=== PATIENT | female | born 1950 | race Caucasian/White ===

== ENCOUNTER 2016-12-23 14:17 | Observation (INO) | payer BC ==
[2016-12-23] MEDS ORDERED: ASPIRIN CHEWTAB 81 MG TABLET ONE (14:49)
[2016-12-23 14:56] LABS: ABSOLUTE NEUTROPHIL COUNT 3.5 K/mm3 (1.8-7.7); BASO # 0.1 K/mm3 (0.0-0.2); BASO % 0.9 % (0.2-1.0); EOS # 0.2 (0.0-0.5); EOS % 2.8 % (0.9-2.9); HEMATOCRIT 38.5 % (37.0-47.0); HEMOGLOBIN 11.7 gm/l (12.0-16.0); IMM NEUT% 0.2 % (0-1); LYMPH # 2.2 (1.0-4.8); LYMPH % 34.2 % (15-45); MEAN CELL VOLUME 83.5 fl (81.0-99.0); MEAN CORPUSCULAR HEMOGLOBIN 25.4 pg (27.0-31.0); MEAN CORPUSCULAR HGB CONC 30.4 g/dl (33.0-37.0); MEAN PLATELET VOLUME 10.9 fl (7.4-10.4); MONO # 0.5 (0.0-0.8); NEUT % 54.9 % (43-75); PLATELET COUNT 258 K/mm3 (130-400); RED CELL DISTRIBUTION WIDTH 15.2 % (11.5-14.5)
[2016-12-23 15:06] LABS: ALB/GLOB RATIO 1.3 (>1.0); CALCIUM 9.5 mg/dL (8.6-10.3)
[2016-12-23 15:11] LABS: TROPONIN I < 0.01 ng/ml (0.0-0.06)
[2016-12-23 15:15] LABS: CKMB ISOENZYME 1.5 ng/ml (0.6-6.3)
--- NOTE | 2016-12-23 15:34 | RAD ---
Name: BILLY GALINDO Exam: Two-view chest Comparison: None Clinical history: Chest pain Findings: 2 views of the chest are submitted. The heart mediastinum and hilar structures are within normal limits. There is no failure, infiltrate, pleural effusion or pneumothorax. There is mild reverse S-shaped scoliosis of the thoracic spine with mild multilevel degenerative disease. Impression: No acute cardiopulmonary process
[2016-12-23 17:15] VITALS: BMI 31.9
[2016-12-23] MEDS ORDERED: SODIUM CHLORIDE 0.9% 100 ML IV PRN (18:03)
[2016-12-23] MEDS ORDERED: BLISTEX LIPSTICK 1 EACH TP PRN (18:03)
[2016-12-23] MEDS ORDERED: ACETAMINOPHEN 325 MG TABLET PO PRN (18:03)
[2016-12-23] MEDS ORDERED: MENTHOL/CETYLPYRD 1 EACH LOZENGE PO PRN (18:03)
[2016-12-23] MEDS ORDERED: MAGNESIUM HYDROXIDE 30 ML UDCUP PO PRN (18:03)
[2016-12-23] MEDS ORDERED: NITROGLYCERIN 0.4 MG/TAB.SUBL BOT SL PRN (18:06)
[2016-12-23] MEDS ORDERED: SODIUM CHLORIDE 0.9% 1,000 ML IV SCH (18:30)
--- NOTE | 2016-12-23 19:45 | HP ---
BILLY GALINDO [id number] DATE OF : 1950 DATE OF ADMISSION: 12/23/2016 IDENTIFICATION: Ms. Galindo is a 66-year-old followed by Dr. Alanna Kruse. CHIEF COMPLAINT: Chest pain. HISTORY OF PRESENT ILLNESS: Ms. Galindo was playing cards this afternoon at 1300 hours when she had onset of sharp chest pains. The pains were on her left side with some radiation into her shoulder and neck. They were sharp. It lasted for a minute or so, and would go away, but then come back. There was associated nausea and some diaphoresis. She then had a persistent low grade discomfort in the left side of her neck and left shoulder that persisted even after the sharp chest pains had resolved. She was seen in the emergency department, treated with oral aspirin and sublingual nitroglycerin and the subsequent discomfort in the shoulder and neck have resolved as well. She denies any prior history of chest pain, but did have a stress test approximately 10 years ago done by Dr[address] Silva. She does walk a little bit for exercise, but not on any regular basis. REVIEW OF SYSTEMS: HEENT: Occasionally feels dizzy when she gets up from sitting, or supine position. No loss of consciousness. No headache. No problems with ear, nose or throat. Cardiac: No palpitations, otherwise as her per history of present illness. Respiratory: No cough, or dyspnea. Gastrointestinal: Some transient nausea with the chest pain. No vomiting, no reflux, no abdominal pain, diarrhea, constipation, hematochezia, or melena. Genitourinary: She has some mild dysuria, not as severe as when she has had bladder infections. Musculoskeletal: No complaints. Constitutional: No fever or chills. She thinks she may have gained 5 pounds over the course of the last year. PAST MEDICAL HISTORY: 1. Hypertension. 2. Dyslipidemia. 3. Depression with anxiety. 4. Obesity, body mass index 32 today. PAST SURGICAL HISTORY: 1. Gastric bypass surgery. 2. Right leg varicose vein stripping. 3. Cholecystectomy. ALLERGIES: REPORTED TO [facility] UNKNOWN REACTION. MEDICATIONS: 1. Sertraline 50 mg by mouth nightly. 2. Vitamin D 50,000 international units by mouth twice weekly. 3. Vitamin B12 injections 1000 mcg monthly. 4. Hydrochlorothiazide 25 mg by mouth each evening. 5. Potassium chloride 10 mEq by mouth each evening. 6. Calcium carbonate 500 mg by mouth each evening. HABITS: Rare alcohol use. No current, or past tobacco use. SOCIAL HISTORY: Lives with her in [place]. 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 FAMILY HISTORY: Her mother had atherosclerosis and of a stroke at age 69. Her mother also had diabetes mellitus type 2. PHYSICAL EXAMINATION: GENERAL: This is a pleasant obese 66-year-old in no acute distress. VITAL SIGNS: Temperature is 98 degrees Fahrenheit. Pulse is 57. Blood pressure is 133/66. Respiratory rate is 16. Oxygen saturation is 97% on room air. HEENT: Pupils equal, round, and reactive. Extraocular muscles are intact. Oropharynx is moist. NECK: No jugular venous distention, or bruits. CHEST: Clear to auscultation. HEART: Regular, normal S1 and S2, no murmurs. ABDOMEN: Obese, soft and nontender. Normal bowel tones. No organomegaly. EXTREMITIES: Good dorsalis pedis pulses. No clubbing, cyanosis or edema. NEUROLOGIC: Alert and oriented. No focal deficits. LABORATORY DATA: White blood cell count is 6.4, hemoglobin and hematocrit 11.7 and 38.5, and platelets 257. Sodium is 137, potassium 4.4, chloride 99, CO2 of 29, BUN 22, creatinine 1.2, and glucose 94. AST is 43. CK-MB is 1.5. Troponin I is less than 0.01. DIAGNOSTIC IMAGIN. Chest x-ray normal. 2. Electrocardiogram with normal sinus rhythm. ASSESSMENT: Ms. Galindo is a 66-year-old with episode of chest pain associated with persistent discomfort in the left shoulder and neck. She has cardiac risk factors of hypertension and dyslipidemia. She also has mildly decreased renal function possibly chronic kidney disease versus acute kidney injury. PLAN: 1. Refer to observation. 2. Repeat cardiac enzymes, and anticipate myocardial perfusion study in the morning. 3. Continue outpatient medications. 4. IV hydration, and repeat basic metabolic profile for renal function in the morning. 5. FULL CODE status. 6. Venous thromboembolism risk is low. She does not require prophylaxis. /jennifer
[2016-12-23] MEDS ORDERED: PUMP TUBING ONE (19:51)
[2016-12-23] MEDS: POTASSIUM CHLORIDE 10 MEQ TAB.SR PO SCH (19:58)
[2016-12-23] MEDS: HYDROCHLOROTHIAZIDE 25 MG TABLET PO SCH (19:58)
[2016-12-23] MEDS: DOCUSATE SODIUM 100 MG CAPSULE PO SCH (20:00)
[2016-12-23 21:00] LABS: URINE APPEARANCE HAZY; URINE BILIRUBIN NEGATIVE (NEGATIVE); URINE BLOOD NEGATIVE (NEGATIVE); URINE COLOR STRAW; URINE GLUCOSE (UA) NEGATIVE (NEGATIVE); URINE LEUKOCYTE ESTERASE NEGATIVE (NEGATIVE); URINE NITRITE POSITIVE (NEGATIVE); URINE PROTEIN NEGATIVE (NEGATIVE); URINE UROBILINOGEN NORMAL (0-1 mg/dl)
[2016-12-23] MEDS ORDERED: SERTRALINE HCL 50 MG TABLET PO SCH (21:00)
[2016-12-23 21:02] LABS: URINE BACTERIA 4+; URINE RBC 0-1 /hpf
[2016-12-23] MEDS ORDERED: CIPROFLOXACIN 500 MG TABLET PO SCH (22:15)
[2016-12-24 06:38] VITALS: BP 121/57
[2016-12-24 07:14] LABS: CALCIUM 9.1 mg/dL (8.6-10.3)
[2016-12-24] MEDS ORDERED: CIPROFLOXACIN 500 MG TABLET PO SCH (09:00)
[2016-12-24] MEDS: CALCIUM CARBONATE 600 MG/VITAMIN D3 400 UNIT/TABLET PO SCH ×2 (09:17→11:21)
[2016-12-24] MEDS: DOCUSATE SODIUM 100 MG CAPSULE PO SCH (09:18)
[2016-12-24] MEDS: HYDROCHLOROTHIAZIDE 25 MG TABLET PO SCH (09:18)
[2016-12-24] MEDS: ASPIRIN (ENTERIC COATED) 325 MG TABLET.EC PO SCH ×2 (09:18→11:22)
[2016-12-24] MEDS: POTASSIUM CHLORIDE 10 MEQ TAB.SR PO SCH ×2 (09:18→11:21)
[2016-12-24] MEDS ORDERED: CIPROFLOXACIN 250 MG TABLET PO SCH (09:25)
--- NOTE | 2016-12-24 10:51 | NUC MED ---
Exam: Nuclear medicine myocardial SPECT, ejection fraction and wall motion Comparison: None Indication: Chest pain. Technique: 11.3 mCi of technetium 99m sestamibi were administered for the rest portion of the exam and SPECT imaging was obtained per protocol. Stress was achieved Jonah protocol in which 92% of target heart rate was met. Please see separate EKG.. At maximum stress, 37.2 mCi of technetium 99m sestamibi were administered and SPECT imaging was obtained per protocol. Findings: Ejection fraction is calculated at 79%. There are no focal wall motion abnormalities. Myocardial perfusion is normal during stress. There are patchy areas of relative decreased perfusion at rest, most prominent within the anteroseptal wall. This region demonstrates increased perfusion at stress. Some gut uptake is noted at rest. IMPRESSION: 1. No evidence of stress-induced ischemia. 2. Ejection fraction 79%. 3. No focal wall motion abnormalities. Report called to Dr. Barrett 1041 hours 12/24/2016.
--- NOTE | 2016-12-24 11:30 | PDOC5 ---
ADMIT DATE: 12/23/16 DISCHARGE DATE: 12/24/16 ADMISSION DIAGNOSES: Chest pain History gastric bypass dyslipidemia Pyuria, suspected UTI Chronic kidney disease, suspect Stage III (eGFR=50) PROCEDURES PERFORMED THIS HOSPITALIZATION: Jonah Myoview, showing normal EKG results, good activity tolerance, and normal imaging. Urine culture, pending CONSULTATIONS: none HOSPITAL COURSE: This is a 66 year old female without significant cardiac risks who had some chest discomfort the day of admission. Referred to [facility], initial eval neg, with neg EKG, neg labs. Referred to Hospitalist service, observed overnight, with an unremarkable stay, no change in normal cardiac enzymes. Pt was started on Cipro for suspected UTI. Culture results are pending. Pt underwent Jonah Protocol stress myoview, with good activity tolerance, normal EKG and normal imaging results. Anticipate DC to home today. - Exam Vital Signs Temperature 97.5 F 12/24/16 06:37 Pulse Rate 62 12/24/16 06:37 Respiratory Rate 16 12/24/16 08:00 Blood Pressure 121/57 12/24/16 06:37 O2 Saturation by Pulse Oximetry 97 12/24/16 06:37 Oxygen Delivery Method Room Air Oxygen Flow Rate 0 General: Alert, Cooperative, No Acute Distress Lungs: Clear to Auscultation Bilaterally, Normal Air Movement Cardiovascular: Regular Rate and Rhythm Abdomen: Soft, Normal Bowel Sounds, Non-Distended Extremities: No Edema (no pitting edema) Skin: Normal Color Neurological: Normal Speech Psych/Mental Status: Normal Affect, Normal Mood - Results Laboratory 12/24/16 06:20 12/24/16 06:20 Estimated GFR 50 L Imaging Results: normal myoview, no perfusion defects, normal EF Chest Xray - no acute process, some scoliosis - Problems:Assessment/Plan (1) Chest pain Qualifiers: Chest pain type: other chest pain Qualifier Code: (R07.89) Other chest pain Status: AcuteAssessment/Plan: Symptoms mild, generally resolved on exertion. Troponins normal EKG and myoview normal. Anticipate DC to home. (2) Bacteriuria with pyuria Status: AcuteAssessment/Plan: Suspected UTI, cultures pending. Anticipate home with Cipro. - Disposition: Disposition: Anticipate DC to home today. - Discharge Plan Additional Instructions: Your main diagnosis is noncardiac chest pain You had a Jonah protocol myoview stress test that was normal Your troponin tests (blood test for heart attack) were all normal. These are great results! Your urine test suggested a possible bladder infection. The culture is not back yet, but we are giving you a prescription for ciprofloxacin (antibiotic) You could check with your doctor later this week about whether to continue or revise this medication. Prescriptions: Ciprofloxacin [CIPRO 250 MG TABLET (SHF)] 250 mg PO BID 5 Days Follow-Up: Alanna Kruse MD [Primary Care Provider] - Condition: Good Disposition: Home
== END 2016-12-24 12:00 | disposition home or self-care (01) ==
LOC: ED 14:17 → MS 16:04
PROVIDERS: ADMIT Family Medicine; ATTEND Family Medicine
DX: R07.89 Other chest pain (principal); I12.9 Hypertensive chronic kidney disease with stage 1 through stage 4 chronic kidney disease, or unspecified chronic kidney disease; N18.3 Chronic kidney disease, stage 3 (moderate); E78.5 Hyperlipidemia, unspecified; F41.8 Other specified anxiety disorders; E66.9 Obesity, unspecified; Z68.32 Body mass index [BMI] 32.0-32.9, adult; Z98.84 Bariatric surgery status; N39.0 Urinary tract infection, site not specified; B96.89 Other specified bacterial agents as the cause of diseases classified elsewhere
CPT/HCPCS: 85025; 82553; 87086; 80048; 80053; 87186; 83735; 84484 ×3; 81001; 36415; 71020; 78452; 93017; 93005; A9270 ×7; J7030; A9500